=== PATIENT | female | born 1995 | race Caucasian/White ===

== ENCOUNTER 2016-07-31 20:47 | Emergency (ER) | payer OTHER ==
[~2016-07-31 20:47] MED LIST: ALBUTEROL0.63 MG/1 IH; IBUPROFEN800 M1 PO; PERCOCET 5-3251 EACH PO; PRENATAL VITAM1 EAC5 PO; TYLENOL325 M2 PO
[2016-07-31] MEDS ORDERED: PROAIR HFA8.5 GM INH (20:51)
[2016-07-31] MEDS ORDERED: PREDNISONE20 M1 PO (20:52)
[2016-07-31] MEDS ORDERED: ZITHROMAX500 M2 PO (20:53)
== END 2016-07-31 22:19 ==
LOC: EDMED 20:47
DX: J45.901 Unspecified asthma with (acute) exacerbation (principal); Z79.51 Long term (current) use of inhaled steroids

== ENCOUNTER 2016-09-17 20:45 | Inpatient (IN) | payer OTHER ==
[~2016-09-17 20:45] MED LIST changes: +PREDNISONE20 M1 PO; +PROAIR HFA8.5 GM INH; +ZITHROMAX500 M2 PO
[2016-09-17 22:17] LABS: BASO % 0.2 % (0-2); EOS % 1.6 % (0-7); EOSINOPHIL ABSOLUTE COUNT 0.2 tho/cmm (0.0-0.7); HCT-HEMATOCRIT 27.1 % (34.0-49.0); HGB-HEMOGLOBIN 8.6 gm/dl (12.0-15.5); IMMATURE GRANULOCYTES ABSOLUTE 0.03 tho/cmm (0-0.03); IMMATURE GRANULOCYTES PERCENT 0.3 % (0-0.3); LYMPH % 20.8 % (20-45); LYMPH ABSOLUTE COUNT 2.3 tho/cmm (0.8-4.5); MCH (MEAN CORPUSCULAR HGB) 25.2 pg (28.0-32.0); MCHC MEAN CORPUSCULAR HGB CONC 31.7 % (32.0-36.0); MCV (MEAN CELL VOLUME) 79.5 fl (82.0-96.0); MEAN PLATELET VOLUME 10.3 cmc (9.4-12.4); MONO % 8.4 % (0-12); MONOCYTE ABSOLUTE COUNT 0.9 tho/cmm (0.0-1.2); NEUTROPHIL ABSOLUTE COUNT 7.7 tho/cmm (1.6-8.0); NEUTROPHIL-AUTOMATED 7.7 tho/cmm (1.6-8.0); NEUTROPHILS % 68.7 % (40-80); PLATELET COUNT 234 tho/cmm (150-450); RED BLOOD COUNT 3.41 mil/cmm (4.00-5.20); RED CELL DISTRIBUTION WIDTH 14.7 % (12.4-16.4); WHITE BLOOD COUNT 11.2 tho/cmm (4.0-10.0)
[2016-09-17 22:35] LABS: ALB/GLOB RATIO 0.5 (0.8-2.0); ALBUMIN 2.2 g/dl (3.5-5.0); ALKALINE PHOSPHATASE 102 U/L (33-138); ALT/SGPT 12 U/L (12-78); ANION GAP 13 mmol/L (0-20); AST/SGOT 10 U/L (10-40); BILIRUBIN,DIRECT <0.1 mg/dl (0.0-0.3); BILIRUBIN,INDIRECT 0.1 mg/dL (0.0-1.0); BILIRUBIN,TOTAL 0.2 mg/dl (0-1.5); BLOOD UREA NITROGEN 8 mg/dl (6-24); CALCIUM 8.4 mg/dl (8.5-10.5); CARBON DIOXIDE-VENOUS 24 mmol/L (22-32); CHLORIDE 109 mmol/l (96-110); GLUCOSE 79 mg/dL (70-110); POTASSIUM 3.9 mmol/L (3.7-5.1); SODIUM 142 mmol/L (135-145); eGFR VALUE FOR BLACK >90 mL/Min
[2016-09-17 22:49] LABS: URINE PRT/CR RATIO 0.12 Ratio (0.0-0.20); URINE TOTAL PROTEIN-RANDOM 20.1 mg/dl (<11.8)
[2016-09-18] MEDS ORDERED: SINGULAIR10 M1 PO (05:03)
[2016-09-19 10:36] LABS: BASO % 0.1 % (0-2); HCT-HEMATOCRIT 25.4 % (34.0-49.0); LYMPH % 9.9 % (20-45); LYMPH ABSOLUTE COUNT 1.6 tho/cmm (0.8-4.5); MCH (MEAN CORPUSCULAR HGB) 25.2 pg (28.0-32.0); MCHC MEAN CORPUSCULAR HGB CONC 31.5 % (32.0-36.0); MCV (MEAN CELL VOLUME) 80.1 fl (82.0-96.0); MEAN PLATELET VOLUME 10.8 cmc (9.4-12.4); MONO % 6.4 % (0-12); NEUTROPHIL ABSOLUTE COUNT 13.1 tho/cmm (1.6-8.0); NEUTROPHIL-AUTOMATED 13.1 tho/cmm (1.6-8.0); NEUTROPHILS % 83.6 % (40-80); PLATELET COUNT 237 tho/cmm (150-450); RED BLOOD COUNT 3.17 mil/cmm (4.00-5.20); RED CELL DISTRIBUTION WIDTH 14.7 % (12.4-16.4); WHITE BLOOD COUNT 15.7 tho/cmm (4.0-10.0)
[2016-09-21] MEDS ORDERED: FEOSOL325 M1 PO (02:40)
[2016-09-21] MEDS ORDERED: IBUPROFEN800 M1 PO (02:41)
[2016-09-21] MEDS ORDERED: PERCOCET 5-3251 EACH PO (02:42)
[2016-09-21] MEDS ORDERED: COLACE100 M1 PO (02:42)
[2016-09-21] MEDS ORDERED: TYLENOL325 M2 PO (15:28)
[2016-09-21] MEDS ORDERED: TYLENOL EXTRA500 M1 PO (15:30)
== END 2016-09-21 16:40 | DRG 765 ==
LOC: LDR 20:45 → OBGD 09-19
PROVIDERS: Obstetrics & Gynecology; ADMIT Obstetrics & Gynecology
PROC: 10D00Z1 Extraction of Products of Conception, Low, Open Approach (ICD-10-PCS; principal; 2016-09-18)
DX: O62.1 Secondary uterine inertia (principal); O60.14X0 Preterm labor third trimester with preterm delivery third trimester, not applicable or unspecified; O41.03X0 Oligohydramnios, third trimester, not applicable or unspecified; O13.3 Gestational [pregnancy-induced] hypertension without significant proteinuria, third trimester; Z3A.36 36 weeks gestation of pregnancy; Z37.0 Single live birth
CPT/HCPCS: J0690; J1170; J1200; J2540; J2590; J2795; J7050